=== PATIENT | female | born 1955 | race Caucasian/White ===

== ENCOUNTER 2016-03-15 23:20 | Emergency (ER) | payer OTHER ==
[~2016-03-15] VITALS: Ht 167.6 cm; Wt 165.6 kg
[~2016-03-15 23:20] MED LIST: ASPIRIN500 MG PO; ATIVAN0.5 MG PO; BUSPIRONE HCL10 MG PO; CARDIZEM60 MG PO; CLEOCIN HCL150 MG PO; COLACE100 MG PO; DIGOXIN125 MCG PO; DULCOLAX5 MG PO; DUONEB 2.5-0.5 M3 ML INH; FENTANYL PA25 MCG/HR TRANSDERM; FLORANEX PACKET1 GM PO; GEMFIBROZIL 60600 M1 PO; HUMALOG100 UNIT/1 SUBQ; HYDROXYZINE HCL25 M1 PO; KLOR-CON 1010 MEQ PO; LANTUS100 UNIT/M SUBQ; LASIX 20 MG TAB20 MG PO; LEVEMIR SUBQ; LIDODERM 5%1 PATC1 TRANSDERM; MIRALAX17 GM PO; NYAMYC15 GM TOP; ONDANSETRON HCL4 M2 PO; OXYCODONE HCL15 MG PO; PANTOPRAZOLE SO20 MG PO; PERCOCET 10-321 EACH PO; PERFOROMIS20 MCG/2 M IH; PROZAC20 MG PO; REQUIP 0.25 M0.25 M1 PO; TOPROL XL25 MG PO; TYLENOL325 MG PO; XARELTO20 MG PO; ZYPREXA 10 MG T10 MG PO
[2016-03-16 00:08] LABS: HEMATOCRIT 31.6 % (37.0-47.0); HEMOGLOBIN 10.4 gm/dL (12.0-15.0); MCH 27.3 pg (26.0-34.0); MCV 82.6 fL (80.0-100.0); PLATELET COUNT 223 thou/uL (150-400); RBC 3.83 mil/uL (4.20-5.00); RDW 13.5 % (10.5-14.5); WBC 4.7 thou/uL (4.0-11.0)
[2016-03-16 00:10] LABS: MANUAL DIFF YES
[2016-03-16 00:18] LABS: CALCIUM 9.4 mg/dL (8.5-10.1); CREATININE 1.2 mg/dL (0.6-1.3); POTASSIUM 3.8 mmol/L (3.5-5.1)
[2016-03-16 00:49] LABS: APTT 35.2 Seconds (24.5-32.8); INR 1.3; PROTIME 13.5 Seconds (9.3-11.4)
[2016-03-16] MEDS ORDERED: BACTRIM DS TAB1 EAC1 PO (01:23)
[2016-03-16 02:12] LABS: ABSOLUTE NEUTROPHILS 2.2 thou/uL (1.4-8.2); METAMYELOCYTES 1 %; TOTAL CELL COUNT 100
[2016-04-12] MEDS ORDERED: ASPIR 8181 MG PO (15:58)
[2016-04-12] MEDS ORDERED: MOBIC15 MG PO (15:59)
[2016-04-12] MEDS ORDERED: MELATONIN3 MG PO (16:00)
[2016-04-12] MEDS ORDERED: XARELTO15 MG PO (16:00)
[2016-04-12] MEDS ORDERED: LASIX 80 MG TAB80 MG PO (16:01)
[2016-04-12] MEDS ORDERED: MUCINEX TA600 MG/TA2 PO (16:01)
[2016-04-12] MEDS ORDERED: DIFLUCAN200 MG PO (16:03)
[2016-04-12] MEDS ORDERED: MIRALAX17 GM PO (16:16)
[2016-04-12] MEDS ORDERED: XANAX 0.5 MG0.5 MG PO (16:17)
[2016-04-17] MEDS ORDERED: KEFLEX500 MG PO (10:34)
== END 2016-03-16 03:57 | disposition home or self-care (01) ==
LOC: ER 23:20
PROVIDERS: Emergency Medicine
DX: J95.01 Hemorrhage from tracheostomy stoma (principal); L89.229 Pressure ulcer of left hip, unspecified stage; L03.116 Cellulitis of left lower limb; E11.9 Type 2 diabetes mellitus without complications; I48.2 Chronic atrial fibrillation; I11.0 Hypertensive heart disease with heart failure; I50.30 Unspecified diastolic (congestive) heart failure; F42.8 Other obsessive-compulsive disorder; G25.81 Restless legs syndrome; F41.9 Anxiety disorder, unspecified; K21.9 Gastro-esophageal reflux disease without esophagitis; Z90.710 Acquired absence of both cervix and uterus; Z87.891 Personal history of nicotine dependence

== ENCOUNTER 2016-06-20 22:51 | Emergency (ER) | payer OTHER ==
[~2016-06-20] VITALS: Ht 157.5 cm; Wt 136.1 kg
[~2016-06-20 22:51] MED LIST changes: +ASPIR 8181 MG PO; +BACTRIM DS TAB1 EAC1 PO; +DIFLUCAN200 MG PO; +KEFLEX500 MG PO; +LASIX 80 MG TAB80 MG PO; +MELATONIN3 MG PO; +MOBIC15 MG PO; +MUCINEX TA600 MG/TA2 PO; +XANAX 0.5 MG0.5 MG PO; +XARELTO15 MG PO
== END 2016-06-21 03:02 | disposition home or self-care (01) ==
LOC: ER 22:51
DX: G89.29 Other chronic pain (principal); E11.9 Type 2 diabetes mellitus without complications; I48.2 Chronic atrial fibrillation; I50.9 Heart failure, unspecified; G25.81 Restless legs syndrome; K21.9 Gastro-esophageal reflux disease without esophagitis; I10 Essential (primary) hypertension; F41.9 Anxiety disorder, unspecified; Z90.89 Acquired absence of other organs; Z90.710 Acquired absence of both cervix and uterus; Z87.891 Personal history of nicotine dependence

== ENCOUNTER 2016-06-29 18:19 | Emergency (ER) | payer OTHER ==
[~2016-06-29] VITALS: Ht 165.1 cm; Wt 146.1 kg
--- NOTE | ~2016-06-29 | EKG ---
[address] [address] ELECTROCARDIOGRAM REPORT Name: LAURA VERDUGO Room #: DEP INOCENCIO Yoon#: [id number] Admission: 06/29/16 Attend Phys: Discharge: 06/30/16 Date of : 57 Report #: [id number] THIS REPORT FOR: //name// [facility] ED Test Date: 2016-06-29 Test Time: 19:18:14 Pat Name: LAURA VERDUGO Department: Room: Gender: F Student Teacher: MZOOK : 1955 Requested By: Zaid Fuller Order Number: [id number] MD: Ashwin Lu Measurements Intervals [place] Rate: 77 P: 69 ID: [id number] QRS: -34 QRSD: 93 T: 64 QT: 377 QTc: 427 Interpretive Statements Sinus rhythm Left axis deviation Low voltage, precordial leads Nonspecific T abnrm, anterolateral leads Baseline wander in lead(s) I,III,aVL Compared to ECG 04/12/2016 15:36:[address] in the ST-T wave segments Electronically Signed On 06-30-2016 9:01:26 CDT by Ashwin Lu [email or web address] <ELECTRONICALLY SIGNED> By: Ashwin Lu MD, [facility] 06/30/16 0901 17 17 Ashwin Lu MD, [facility] /EPI
[2016-06-29] MEDS ORDERED: GABAPENTIN 100100 MG PO (18:32)
[2016-06-29 19:24] LABS: BASOPHILS 0.5 % (0.0-2.0); EOSINOPHILS 4.6 % (0.0-3.0); HEMATOCRIT 32.8 % (37.0-47.0); LYMPHOCYTES 31.5 % (24.0-44.0); MCH 28.4 pg (26.0-34.0); MCHC 33.5 g/dL (28.0-37.0); MCV 84.8 fL (80.0-100.0); MONOCYTES 11.5 % (1.0-8.0); PLATELET COUNT 277 thou/uL (150-400); POLYS 51.9 % (36.0-66.0); RBC 3.87 mil/uL (4.20-5.00); RDW 15.5 % (10.5-14.5); WBC 5.7 thou/uL (4.0-11.0)
[2016-06-29 19:25] LABS: MANUAL DIFF NO
[2016-06-29 19:26] LABS: ANION GAP 6 mmol/L (7-16); BUN 25 mg/dL (7-18); CALCIUM 9.2 mg/dL (8.5-10.1); CHLORIDE 99 mmol/L (98-107); CO2 34 mmol/L (21-32); CREATININE 1.1 mg/dL (0.6-1.0); GLUCOSE 217 mg/dL (74-106); POTASSIUM 3.9 mmol/L (3.5-5.1); SODIUM 139 mmol/L (136-145)
[2016-06-29 19:35] LABS: TROPONIN-I < 0.04 ng/mL (<0.04-0.07)
== END 2016-06-30 00:57 | disposition home or self-care (01) ==
LOC: ER 18:19
PROVIDERS: Emergency Medicine
DX: M79.601 Pain in right arm (principal); M79.602 Pain in left arm; E11.9 Type 2 diabetes mellitus without complications; I48.2 Chronic atrial fibrillation; I50.9 Heart failure, unspecified; G25.81 Restless legs syndrome; K21.9 Gastro-esophageal reflux disease without esophagitis; I10 Essential (primary) hypertension; F41.9 Anxiety disorder, unspecified; Z90.89 Acquired absence of other organs; Z90.710 Acquired absence of both cervix and uterus; Z87.891 Personal history of nicotine dependence

== ENCOUNTER 2016-07-28 17:04 | Emergency (ER) | payer OTHER ==
[~2016-07-28] VITALS: Ht 165.1 cm; Wt 143.8 kg
[~2016-07-28 17:04] MED LIST changes: +GABAPENTIN 100100 MG PO
== END 2016-07-28 19:44 | disposition home or self-care (01) ==
LOC: ER 17:04
DX: S16.1XXA Strain of muscle, fascia and tendon at neck level, initial encounter (principal); I11.0 Hypertensive heart disease with heart failure; I50.9 Heart failure, unspecified; K21.9 Gastro-esophageal reflux disease without esophagitis; I48.2 Chronic atrial fibrillation; E11.9 Type 2 diabetes mellitus without complications; G25.81 Restless legs syndrome; Z90.710 Acquired absence of both cervix and uterus; Z90.89 Acquired absence of other organs; Z87.891 Personal history of nicotine dependence; W05.0XXA Fall from non-moving wheelchair, initial encounter; Y93.89 Activity, other specified; Y92.89 Other specified places as the place of occurrence of the external cause; Y99.9 Unspecified external cause status

== ENCOUNTER 2016-08-13 01:34 | Emergency (ER) | payer OTHER ==
[~2016-08-13] VITALS: Ht 170.2 cm; Wt 156.9 kg
== END 2016-08-13 05:55 | disposition home or self-care (01) ==
LOC: ER 01:34
DX: S02.2XXA Fracture of nasal bones, initial encounter for closed fracture (principal); S00.11XA Contusion of right eyelid and periocular area, initial encounter; S09.90XA Unspecified injury of head, initial encounter; G89.29 Other chronic pain; E66.01 Morbid (severe) obesity due to excess calories; E11.9 Type 2 diabetes mellitus without complications; I48.91 Unspecified atrial fibrillation; I11.0 Hypertensive heart disease with heart failure; I50.9 Heart failure, unspecified; J44.9 Chronic obstructive pulmonary disease, unspecified; F41.9 Anxiety disorder, unspecified; K21.9 Gastro-esophageal reflux disease without esophagitis; G25.81 Restless legs syndrome; Z68.43 Body mass index [BMI] 50.0-59.9, adult; Z90.710 Acquired absence of both cervix and uterus; Z87.891 Personal history of nicotine dependence; W01.190A Fall on same level from slipping, tripping and stumbling with subsequent striking against furniture, initial encounter; Y93.89 Activity, other specified; Y92.89 Other specified places as the place of occurrence of the external cause; Y99.8 Other external cause status

== ENCOUNTER 2016-08-24 17:18 | Emergency (ER) | payer OTHER ==
[~2016-08-24] VITALS: Ht 165.1 cm; Wt 156.9 kg
== END 2016-08-24 17:50 | disposition home or self-care (01) ==
LOC: ER 17:18
DX: J95.09 Other tracheostomy complication (principal); I11.0 Hypertensive heart disease with heart failure; I50.9 Heart failure, unspecified; E11.9 Type 2 diabetes mellitus without complications; F41.9 Anxiety disorder, unspecified; K21.9 Gastro-esophageal reflux disease without esophagitis; I48.2 Chronic atrial fibrillation; Z90.710 Acquired absence of both cervix and uterus; Z90.49 Acquired absence of other specified parts of digestive tract; Z98.890 Other specified postprocedural states; Z87.891 Personal history of nicotine dependence; Y83.8 Other surgical procedures as the cause of abnormal reaction of the patient, or of later complication, without mention of misadventure at the time of the procedure

== ENCOUNTER 2016-08-27 00:58 | Inpatient (IN) | payer OTHER ==
[~2016-08-27] VITALS: Ht 165.1 cm; Wt 162.4 kg
--- NOTE | ~2016-08-27 | HC ---
[facility] [place] [address] CONSULTATION Name: LAURA VERDUGO Room #: 451-P ADM IN M.R.#: [id number] Admission: 08/27/16 Attend Phys: Bubba Parikh MD Discharge: Date of : 57 Report #: [id number] THIS REPORT FOR: //name// CC: Rafal Parikh INFECTIOUS DISEASE CONSULTATION REASON FOR CONSULTATION: I was asked to evaluate the patient concerning sepsis. HISTORY OF PRESENT ILLNESS: The patient was a 61-year-old who transfers to the Emergency Room from [facility] with a chronic tracheostomy. Emergency room reports more confusion and fever up to 104 degrees. Main complaint has been pain. By nursing reports, it has been abdominal pain, but patient states she hurts all over. Following admission, she has had a temperature up to 101.7 degrees. Hemodynamically, she has been stable. She has been on 30% trach mask. Now has an indwelling Win catheter and peripheral IV in place. There has been no reported diarrhea. No vomiting. She is obese. ALLERGIES: None known. MEDICATIONS: As noted on her MAR noting that she is now on vancomycin, Zosyn and Levaquin. PAST MEDICAL HISTORY: Respiratory failure, tracheostomy, obstructive pulmonary disease, obesity, congestive heart failure, chronic atrial fibrillation, gastroesophageal reflux, anxiety, hypertension, restless leg syndrome. PAST SURGICAL HISTORY: Hysterectomy, cholecystectomy, bilateral knee surgery, neck surgery with hardware reconstruction, right foot surgery. FAMILY HISTORY: Noncontributory. SOCIAL HISTORY: Past smoker. No significant alcohol intake. REVIEW OF SYSTEMS: The patient was unable to give any further details. PHYSICAL EXAMINATION: VITAL SIGNS: Currently afebrile, hemodynamically stable on 30% trach mask morbidly obese. SKIN: With cellulitis and erythema and tenderness involving her upper medial thigh. Indwelling Win catheter. No other skin lesions noted. GENERAL: The patient was very large and I was unable to roll her over. HEENT: Unremarkable. Tracheostomy unremarkable. LUNGS: Clear anteriorly. Few crackles in the bases laterally. [facility] [address] [place] [address] CONSULTATION Name: LAURA VERDUGO Room #: 451-P ADM IN M.R.#: [id number] Admission: 08/27/16 Attend Phys: Bubba Parikh MD Discharge: Date of : 57 Report #: [id number] HEART: Regular without murmur. ABDOMEN: Obese, diffusely tender, no appreciable masses. EXTREMITIES: Unremarkable. NEUROLOGIC: Nonfocal. It is noted that the patient would scream out with any manipulation or movements of her body. LABORATORY STUDIES: Chest x-ray, right lower lobe and left lower lobe infiltrates. Lactate 2.4. Hemoglobin 11.7, white count 15.3, 79% segs, 4% bands, platelet count 228,000. Sodium 133, potassium 3.8, bicarbonate 29, creatinine 1.4, blood glucose 238, AST 43. Liver function tests otherwise normal. Urinalysis 1+ protein, otherwise unremarkable. Blood and sputum cultures are pending. IMPRESSION: A 61-year-old with morbid obesity, diabetes, obstructive sleep apnea and COPD with a chronic tracheostomy presents now with high fever, decreased mental status, diffuse pain, possibly increased abdominal pain with mild leukocytosis and basilar infiltrates. She has had basilar changes on her previous imaging. PLAN: Would recommend continuing healthcare-associated coverage with vancomycin and Zosyn. Await cultures of blood and sputum. Would image her abdomen and pelvis and follow her clinical course over the next 12-24 hours. <ELECTRONICALLY SIGNED> By: Duran Zuleta MD 08/31/16 1006 1010 1221 Duran Zuleta MD /nt
--- NOTE | ~2016-08-27 | HC ---
[facility] [place] [address] CONSULTATION Name: LAURA VERDUGO Room #: 451-P [facility] IN ..#: [id number] Admission: 08/27/16 Attend Phys: Bubba Parikh MD Discharge: Date of : 57 Report #: [id number] THIS REPORT FOR: //name// CC: Rafal Parikh DATE OF SERVICE: 08/28/2016 CHIEF COMPLAINT: Gluteal pressure ulceration. HISTORY OF PRESENT ILLNESS: This is a 61-year-old white female patient who was admitted to the hospital from [facility] due to fever and abdominal pain. She was noted to have a small gluteal ischial pressure ulceration. I have been asked to see her in this regard. PAST MEDICAL HISTORY: The patient's past medical history is positive for history of respiratory failure. She has tracheostomy. She has [id number] kidney injury, anasarca, bilateral arm pain, cellulitis, chronic pain syndrome, history of community-acquired pneumonia and morbid obesity. The patient has history of diabetes mellitus. ALLERGIES: None. MEDICATIONS: Include oxycodone, metoprolol, gemfibrozil, Requip, diltiazem, Colace, Lanoxin, Zyprexa, Dulcolax, Zofran, hydroxyzine, buspirone, aspirin, Meloxicam, Xarelto, furosemide, guaifenesin, Diflucan, polyethylene glycol, Xanax and Neurontin. FAMILY HISTORY: Positive for heart disease in her mother. SOCIAL HISTORY: The patient is a former smoker. No drug use. No alcohol use. REVIEW OF SYSTEMS: Difficult to obtain due to the patient's willingness to answer questions. A 13-point review of systems is negative, other than that mentioned in the history of present illness and past medical history. PHYSICAL EXAMINATION: VITAL SIGNS: Include temperature 97.8, pulse 68, respiratory rate of 18, blood pressure 123/58 and pulse oximetry is 93%. GENERAL: This is a chronically ill-appearing, morbidly obese female patient, in minimal distress. HEENT: Head normocephalic. NECK: Short. Tracheostomy is in place. LUNGS: Diminished. HEART: Distant. ABDOMEN: Obese. She has multiple skin folds and evidence of some mild [facility] [address] [place] [address] CONSULTATION Name: LAURA VERDUGO Room #: 451-P [facility] IN M.R.#: [id number] Admission: 08/27/16 Attend Phys: Bubba Parikh MD Discharge: Date of : 57 Report #: [id number] intertrigo. EXTREMITIES: Examination of the sacral gluteal region demonstrates a small stage 2 pressure ulcer to the ischial gluteal region that is very superficial. She is having some stool incontinence. She has multiple skin folds in the thighs that show some evidence of a cutaneous candidiasis. EXTREMITIES: Lower extremities show 2-3+ edema with some evidence of chronic stasis dermatitis. CLINICAL IMPRESSION: 1. Stage 2 ischial gluteal pressure ulceration. 2. Morbid obesity. 3. Respiratory failure with tracheostomy. RECOMMENDATIONS: At this point in time, we will recommend a moisture barrier cream to be applied to the sacral gluteal region 3-4 times per day and as needed. We will recommend nystatin powder to the skin folds. May consider InterDry if there is failure of that area to resolve. She will need frequent repositioning. I appreciate being asked to see her in consultation. By: [id number] Chato Tse MD /nt
--- NOTE | ~2016-08-27 | HC ---
[facility] [address] CONSULTATION Name: LAURA VERDUGO Room #: 451-P ADM IN M.R.#: [id number] Admission: 08/27/16 Attend Phys: Bubba Parikh MD Discharge: Date of : 57 Report #: [id number] THIS REPORT FOR: //name// CC: Rafal Parikh MD DATE OF SERVICE: 08/27/2016 PULMONARY CONSULTATION REFERRING PROVIDER: Bubba Parikh M.D. REASON FOR CONSULTATION: Chronic tracheostomy, possible pneumonia. CHIEF COMPLAINT: Fever. HISTORY OF PRESENT ILLNESS: Our group was asked to see the patient in consultation while hospitalized at [facility]. A 61-year-old woman with chronic obstructive pulmonary disease and chronic respiratory failure, probable sleep apnea, has a chronic tracheostomy tube in place, presented to the emergency department from [facility] for abdominal pain and fever. No significant cough or congestion. No significant secretions coming from the tracheostomy tube. The patient is confused and difficult to obtain any history from. When awakened, complains of severe pain in her knees and back, but unable to give any further history. Otherwise, no other complaints. The patient admitted very early this morning and ongoing workup for fever is pending. Does not appear to be in any respiratory distress. ALLERGIES: None known. PAST MEDICAL HISTORY: 1. Chronic respiratory failure and insufficiency. 2. Diabetes mellitus type 2. 3. Chronic atrial fibrillation. 4. COPD. 5. Probable obstructive sleep apnea. 6. Morbid obesity. 7. Anxiety disorder. 8. General debilitation, appears to be bedridden. CURRENT MEDICATIONS: 1. Acetaminophen p.r.n. 2. Albuterol and ipratropium nebulizer treatments q. 4 hours. 3. BuSpar 10 mg t.i.d. 4. Diltiazem 60 mg daily. [facility] [address] [place] [address] CONSULTATION Name: LAURA VERDUGO Room #: 451-P [facility] IN [facility].#: [id number] Admission: 08/27/16 Attend Phys: Bubba Parikh MD Discharge: Date of : 57 Report #: [id number] 5. Digoxin 0.125 daily. 6. Hydroxyzine 25 q.i.d. p.r.n. 7. Metoprolol 25 mg daily. 8. Zosyn 3.375 q. 6 hours. 9. Rivaroxaban 15 mg daily. 10. Vancomycin IV. SOCIAL HISTORY: Difficult to obtain from the patient due to her current status. She currently is residing at [facility]. Former smoker. FAMILY HISTORY: Unobtainable due to current status. REVIEW OF SYSTEMS: Unobtainable due to her current status. PHYSICAL EXAMINATION: VITAL SIGNS: Temperature max 38.7, temperature current 36.5, pulse 70s, respiratory rate 18, blood pressure is 144/53 and oxygen saturation is 96% on 32% facial. GENERAL: This is an obese, middle-aged female, somnolent, but arousable and confused. ENT: Size 6 extended-length tracheostomy tube in place. No surrounding erythema. Some dry mouth and dental caries noted. LUNGS: Essentially clear. No wheezes or crackles. CARDIOVASCULAR: Heart regular. No murmurs noted. ABDOMEN: Obese, soft and nontender. No masses. EXTREMITIES: Reveal 1+ edema. LABORATORY DATA: White blood cell count 16,000, hemoglobin 12, hematocrit 35 and platelet count 228,000. Sodium 133, potassium 3.8, chloride 95, bicarbonate 29, BUN 31, creatinine 1.4 and glucose is 338. Arterial blood gas done on 35% trach shield revealed pH of 7.47, pCO2 of 43, pO2 of 70, bicarbonate of 31 and lactate is 2.25. Urinalysis, no significant pyuria. Chest x-ray reveals the tracheostomy tube to be in place. Actual chest x-ray is improved when compared to prior studies about 4 months earlier. Minimal basilar atelectasis also apparent. Cultures are pending. IMPRESSION: 1. Febrile illness, unclear etiology. Currently. on healthcare-associated pneumonia treatment, but I am not certain if this is the source of her fever. Would await further cultures. 2. Chronic respiratory insufficiency, tracheostomy tube in place. 3. Diabetes mellitus, poorly controlled at the present, sliding scale insulin noted. SUGGESTIONS: Continue current therapy at bronchodilator and antibiotics per infectious disease service and await cultures. Given altered mental status, [address] [address] CONSULTATION Name: LAURA VERDUGO Room #: 451-P [facility] IN M.R.#: [id number] Admission: 08/27/16 Attend Phys: Bubba Parikh MD Discharge: Date of : 57 Report #: [id number] imaging of the head and perhaps further imaging as planned of the abdomen and pelvis. We will follow with you. Thank you for requesting our suggestions. By: [id number] Gonsalo Wood MD /patricia
[2016-08-27 01:00] VITALS: BP 134/80
[2016-08-27 01:49] LABS: HEMATOCRIT 34.7 % (37.0-47.0); HEMOGLOBIN 11.7 gm/dL (12.0-15.0); MCH 29.4 pg (26.0-34.0); MCHC 33.7 g/dL (28.0-37.0); PLATELET COUNT 228 thou/uL (150-400); RBC 3.99 mil/uL (4.20-5.00); RDW 14.5 % (10.5-14.5); WBC 15.3 thou/uL (4.0-11.0)
[2016-08-27 01:51] LABS: MANUAL DIFF YES
[2016-08-27 01:57] LABS: URINE BILIRUBIN NEGATIVE (Negative); URINE BLOOD 1+ (Negative); URINE COLOR YELLOW; URINE GLUCOSE-RANDOM* NEGATIVE (Negative); URINE KETONES NEGATIVE (Negative); URINE LEUKOCYTES-REFLEX NEGATIVE (Negative); URINE PROTEIN (DIPSTICK) 1+ (Negative); URINE SPECIFIC GRAVITY 1.015 (1.003-1.035); URINE UROBILINOGEN 0.2 E.U./dl (0.2-1.0)
[2016-08-27 01:59] LABS: CALCIUM 9.2 mg/dL (8.5-10.1); CREATININE 1.4 mg/dL (0.6-1.0); POTASSIUM 3.8 mmol/L (3.5-5.1)
[2016-08-27 02:02] LABS: ALBUMIN 3.4 g/dL (3.4-5.0); DIRECT BILIRUBIN 0.1 mg/dL (<0.1-0.3); TOTAL BILIRUBIN 0.4 mg/dL (<0.1-1.0); TOTAL PROTEIN 8.3 g/dL (6.4-8.2)
[2016-08-27 02:18] LABS: CASTS None Seen /LPF (None Seen); SQUAMOUS 0-3 Few /LPF (0-3); URINE RBC 0-2 Rare /HPF (0-2); URINE WBC-REFLEX 0-5 Rare /HPF (0-5)
[2016-08-27 02:19] LABS: AMORPHOUS URATES Few /LPF (None Seen)
[2016-08-27 02:22] LABS: ABSOLUTE NEUTROPHILS 12.7 thou/uL (1.4-8.2); TOTAL CELL COUNT 100
[2016-08-27 05:15] VITALS: BP 127/56
[2016-08-27 08:11] VITALS: BP 144/53
[2016-08-27 11:00] LABS: ABG SAMPLE TYPE ARTERIAL; BE(vivo) 6.4 mmol/L (-2 to +3); HCO3 30.7 mmol/L (22.0-26.0); LACTATE 2.25 mmol/L (0.5-2.0); O2(CT) 15.7 mL/dL (15.0-23.0); O2Hb 93.6 % (92.0-98.0); PCO2 43.1 mmHg (35.0-45.0); STICK SITE R.BRACHIAL; pH 7.471 (7.360-7.450); sO2 94.9 % (92.0-98.0); tCO2 32.1 mmol/L (24.0-30.0)
[2016-08-27 11:01] LABS: ABG COMMENT 35% TRACH MASK
[2016-08-27 20:20] VITALS: BP 118/52
[2016-08-28 05:52] VITALS: BP 126/61
[2016-08-28 06:49] LABS: ABSOLUTE NEUTROPHILS 5.2 thou/uL (1.4-8.2); BASOPHILS 0.3 % (0.0-2.0); EOSINOPHILS 2.8 % (0.0-3.0); HEMATOCRIT 31.7 % (37.0-47.0); HEMOGLOBIN 10.9 gm/dL (12.0-15.0); LYMPHOCYTES 16.1 % (24.0-44.0); MCH 30.1 pg (26.0-34.0); MCHC 34.4 g/dL (28.0-37.0); MCV 87.5 fL (80.0-100.0); MONOCYTES 7.6 % (1.0-8.0); PLATELET COUNT 187 thou/uL (150-400); POLYS 73.2 % (36.0-66.0); RBC 3.62 mil/uL (4.20-5.00); RDW 14.8 % (10.5-14.5); WBC 7.1 thou/uL (4.0-11.0)
[2016-08-28 06:51] LABS: MANUAL DIFF NO
[2016-08-28 07:10] LABS: ALBUMIN 2.7 g/dL (3.4-5.0); CALCIUM 8.5 mg/dL (8.5-10.1); CREATININE 1.1 mg/dL (0.6-1.0); POTASSIUM 3.3 mmol/L (3.5-5.1); TOTAL BILIRUBIN 0.4 mg/dL (<0.1-1.0); TOTAL PROTEIN 6.5 g/dL (6.4-8.2)
[2016-08-28 08:15] VITALS: BP 123/58
[2016-08-28 13:39] VITALS: BP 124/62
[2016-08-28 19:10] VITALS: BP 119/48
[2016-08-29 03:03] VITALS: BP 117/55
[2016-08-29 08:22] VITALS: BP 114/54
[2016-08-29 12:12] VITALS: BP 142/66
[2016-08-29 14:58] VITALS: BP 129/59
[2016-08-29 20:11] VITALS: BP 119/60
[2016-08-30 03:37] VITALS: BP 120/63
[2016-08-30 06:33] LABS: CALCIUM 8.8 mg/dL (8.5-10.1); CREATININE 0.9 mg/dL (0.6-1.0); POTASSIUM 3.3 mmol/L (3.5-5.1)
[2016-08-30 06:48] LABS: HEMATOCRIT 30.2 % (37.0-47.0); HEMOGLOBIN 10.1 gm/dL (12.0-15.0); MCH 29.4 pg (26.0-34.0); MCHC 33.4 g/dL (28.0-37.0); MCV 87.9 fL (80.0-100.0); RBC 3.44 mil/uL (4.20-5.00); RDW 14.7 % (10.5-14.5); WBC 5.1 thou/uL (4.0-11.0)
[2016-08-30 08:30] VITALS: BP 136/63
[2016-08-30 11:46] VITALS: BP 153/84
[2016-08-30 12:00] VITALS: BP 149/72
[2016-08-30 16:16] VITALS: BP 136/74
[2016-08-30 19:24] VITALS: BP 125/63
[2016-08-31 04:01] VITALS: BP 126/63
[2016-08-31 05:14] LABS: HEMATOCRIT 29.1 % (37.0-47.0); HEMOGLOBIN 9.8 gm/dL (12.0-15.0); MCH 29.6 pg (26.0-34.0); MCHC 33.7 g/dL (28.0-37.0); RBC 3.31 mil/uL (4.20-5.00); RDW 14.7 % (10.5-14.5); WBC 4.7 thou/uL (4.0-11.0)
[2016-08-31 05:22] LABS: CALCIUM 8.5 mg/dL (8.5-10.1); POTASSIUM 3.5 mmol/L (3.5-5.1)
[2016-08-31 08:22] VITALS: BP 115/54
[2016-08-31 11:52] VITALS: BP 150/76
[2016-08-31] MEDS ORDERED: LANTUS100 UNIT/M SUBQ (14:24)
[2016-08-31] MEDS ORDERED: AUGMENTIN 875875 MG PO (14:24)
== END 2016-08-31 15:40 | DRG 871 ==
LOC: ER 00:58 → EROBS 04:37 → 4W 04:37
PROVIDERS: Emergency Medicine; Family Medicine; Internal Medicine Pulmonary Disease; Nurse Practitioner Family
PROC: 02HV33Z Insertion of Infusion Device into Superior Vena Cava, Percutaneous Approach (ICD-10-PCS; principal; 2016-08-27)
PROC: B548ZZA Ultrasonography of Superior Vena Cava, Guidance (ICD-10-PCS; principal; 2016-08-27)
DX: A41.9 Sepsis, unspecified organism (principal); J18.9 Pneumonia, unspecified organism; G92 Toxic encephalopathy; Z68.43 Body mass index [BMI] 50.0-59.9, adult; L03.115 Cellulitis of right lower limb; J96.10 Chronic respiratory failure, unspecified whether with hypoxia or hypercapnia; N17.9 Acute kidney failure, unspecified; I13.0 Hypertensive heart and chronic kidney disease with heart failure and stage 1 through stage 4 chronic kidney disease, or unspecified chronic kidney disease; R65.20 Severe sepsis without septic shock; F41.9 Anxiety disorder, unspecified; E66.01 Morbid (severe) obesity due to excess calories; L89.312 Pressure ulcer of right buttock, stage 2; E11.622 Type 2 diabetes mellitus with other skin ulcer; E11.65 Type 2 diabetes mellitus with hyperglycemia; I11.0 Hypertensive heart disease with heart failure; I48.91 Unspecified atrial fibrillation; Y95 Nosocomial condition; N18.9 Chronic kidney disease, unspecified; I50.9 Heart failure, unspecified; G89.4 Chronic pain syndrome; G25.81 Restless legs syndrome; E11.22 Type 2 diabetes mellitus with diabetic chronic kidney disease; K21.9 Gastro-esophageal reflux disease without esophagitis; Z79.01 Long term (current) use of anticoagulants; G47.33 Obstructive sleep apnea (adult) (pediatric); J44.9 Chronic obstructive pulmonary disease, unspecified; Z79.4 Long term (current) use of insulin; Z79.899 Other long term (current) drug therapy; Z93.0 Tracheostomy status; Z90.710 Acquired absence of both cervix and uterus; Z82.49 Family history of ischemic heart disease and other diseases of the circulatory system; Z87.891 Personal history of nicotine dependence; Z87.01 Personal history of pneumonia (recurrent); Z90.49 Acquired absence of other specified parts of digestive tract
CPT/HCPCS: 10045